=== PATIENT | female | born 1945 | race Caucasian/White ===

== ENCOUNTER 2020-08-25 12:36 | Outpatient (REF) | payer MEDICARE, SELFPAY ==
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
== END 2020-08-25 12:37 | disposition home or self-care (01) ==
LOC: HO.MAMMO 12:36
PROVIDERS: Visit Provider Internal Medicine
DX: N63.22 Unspecified lump in the left breast, upper inner quadrant (principal); D05.11 Intraductal carcinoma in situ of right breast; Z98.890 Other specified postprocedural states
CPT/HCPCS: 76642; 77062; 77066

== ENCOUNTER → 2020-10-20 09:55 | Outpatient (BNVA) | payer BC, SELFPAY | PROVIDERS: PCP Internal Medicine; Visit Provider Surgery ==

== ENCOUNTER 2021-02-21 13:14 | Outpatient (REF) | payer BC, SELFPAY ==
--- NOTE | ~2021-02-21 | MM_ITS ---
EXAMINATION: MM DIAGNOSTIC DIGITAL BREAST TOMOSYNTHESIS, LEFT US BREAST TARGETED, LEFT CLINICAL INFORMATION: Six-month followup breast nodules. Previous right breast lumpectomy. COMPARISON: Mammography: Mammography of same day and studies dating back to 06/26/2017. Ultrasound study of 08/25/2020. TECHNIQUE: Digital breast tomosynthesis is performed in both the craniocaudal and mediolateral oblique views along with computer-aided detection (CAD). Synthesized 2-D images are generated from the tomosynthesis. Spot compression views in craniocaudal projection performed laterally. Targeted left breast ultrasound. FINDINGS: There are scattered areas of fibroglandular density (ACR BI-RADS breast composition Category b). There is stable appearance of some asymmetric parenchyma deep in the upper outer aspect of the left breast. There is multiplicity of grouped and scattered benign-appearing calcifications. Targeted left breast ultrasound performed in the upper inner quadrant 11 o'clock position approximately 11 cm from nipple, again demonstrates a region of a few hypoechoic lesions with surrounding hyperechoic regions consistent with some degree of fat necrosis. There is what appears to be an acorn cyst amongst the densities. No internal vascularity is present within these lesions. Results are discussed with the patient at time of visit. MM/MM tomosynthesis diagnostic LT IMPRESSION: There are no significant changes from prior study. ASSESSMENT: BI-RADS 3: Probably Benign. RECOMMENDATION: Diagnostic mammography in 6 months left breast with screening right breast study. Diagnostic left breast ultrasound. This patient's information was entered into a reminder system with a target due date for their next mammogram.
--- NOTE | ~2021-02-21 | US_ITS ---
EXAMINATION: US DIAGNOSTIC ULTRASOUND BREAST, LEFT CLINICAL INFORMATION: Follow up multiple cystic regions left breast, 11:00 position COMPARISON: August 25, 2020. TECHNIQUE: Ultrasound of the breast is performed with real-time figueroa scale imaging and color Doppler. FINDINGS: Targeted left breast ultrasound performed in the upper inner quadrant 11:00 position approximately 11 cm from nipple again demonstrates a region of a few hypoechoic lesions with surrounding hyperechoic regions consistent with some degree of fat necrosis. There is what appears to be an acorn cyst amongst the densities. No internal vascularity is present within these lesions. Results are discussed with the patient at time of visit. US/US breast LT limited IMPRESSION: There are no significant changes from prior study. ASSESSMENT: BI-RADS 3: Probably Benign RECOMMENDATION: Diagnostic mammography in 6 months Left breast with screening right breast study. Diagnostic left breast ultrasound.
== END 2021-02-21 13:15 | disposition home or self-care (01) ==
LOC: HO.MAMMO 13:14
PROVIDERS: Visit Provider Internal Medicine
DX: N63.22 Unspecified lump in the left breast, upper inner quadrant (principal)
CPT/HCPCS: 76642; 77061; 77065

== ENCOUNTER → 2021-07-05 13:55 | Outpatient (BNVA) | payer BC, SELFPAY | PROVIDERS: PCP Internal Medicine; Referring Provider Internal Medicine; Visit Provider Surgery ==

== ENCOUNTER 2021-09-14 14:27 | Outpatient (REF) | payer MEDICARE, SELFPAY ==
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
== END 2021-09-14 14:28 | disposition home or self-care (01) ==
LOC: HO.MAMMO 14:27
PROVIDERS: Visit Provider Internal Medicine
DX: R92.2 Inconclusive mammogram (principal)
CPT/HCPCS: 76642; 77062; 77066

== ENCOUNTER → 2021-10-30 13:46 | Outpatient (BNVA) | payer MEDICARE, SELFPAY | PROVIDERS: PCP Internal Medicine; Visit Provider Surgery | DX: Z86.000 Personal history of in-situ neoplasm of breast (principal) | CPT/HCPCS: 99212 ==

== ENCOUNTER 2022-02-23 13:21 | Outpatient (REF) | payer MEDICARE, SELFPAY ==
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
== END 2022-02-23 13:22 | disposition home or self-care (01) ==
LOC: HO.MAMMO 13:21
PROVIDERS: PCP Internal Medicine; Visit Provider Internal Medicine
DX: R92.1 Mammographic calcification found on diagnostic imaging of breast (principal)
CPT/HCPCS: 77061; 77065

== ENCOUNTER → 2022-03-19 13:08 | Outpatient (BNVA) | payer MEDICARE, SELFPAY | PROVIDERS: PCP Internal Medicine; Visit Provider Surgery | DX: R92.1 Mammographic calcification found on diagnostic imaging of breast (principal); Z86.000 Personal history of in-situ neoplasm of breast | CPT/HCPCS: 99212 ==

== ENCOUNTER 2022-08-30 12:37 | Outpatient (REF) | payer MEDICARE, SELFPAY ==
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
== END 2022-08-30 12:38 | disposition home or self-care (01) ==
LOC: HO.MAMMO 12:37
PROVIDERS: PCP Internal Medicine; Visit Provider Internal Medicine
DX: R92.1 Mammographic calcification found on diagnostic imaging of breast (principal)
CPT/HCPCS: 77062; 77066

== ENCOUNTER → 2022-09-10 11:28 | Outpatient (BNVA) | payer MEDICARE, SELFPAY | PROVIDERS: PCP Internal Medicine; Visit Provider Surgery | DX: R92.1 Mammographic calcification found on diagnostic imaging of breast (principal) | CPT/HCPCS: 99212 ==

== ENCOUNTER 2023-04-05 14:12 | Outpatient (REF) | payer MEDICARE, SELFPAY ==
--- NOTE | ~2023-04-05 | MM_ITS ---
EXAMINATION: MM DIAGNOSTIC DIGITAL BREAST TOMOSYNTHESIS, LEFT CLINICAL INFORMATION: 6 month follow-up left breast calcifications 3:00 axis. COMPARISON: Mammography: 02/23/2022, 2-22, 02/21/2021, 08/25/2020. TECHNIQUE: Digital left breast tomosynthesis is performed in both the craniocaudal and mediolateral oblique views along with computer-aided detection (CAD). Synthesized 2D images are generated from the tomosynthesis. In addition, 2-D digital spot compression CC and ML views were performed of the left breast. FINDINGS: There are scattered areas of fibroglandular density (ACR BI-RADS breast composition Category b). Scattered loosely grouped calcifications in the 3:00 axis of the left breast, mid depth are again seen, slightly increased in number, and increased in size and coarseness. These overlie a background parenchymal vague focal asymmetry most consistent with a region of fat necrosis. These calcifications are dystrophic, related to fat necrosis from prior breast trauma. No suspicious changes are evident. No masses, or areas of parenchymal distortion. No skin changes evident. There are additional dystrophic scattered calcifications. Results are provided to the patient at time of visit by the technologist. MM/MM tomosynthesis diagnostic LT IMPRESSION: Calcifications with underlying parenchymal focal asymmetry as detailed, findings consistent with fat necrosis with associated dystrophic calcification. Findings are benign. There are no findings suspicious for malignancy. Recommend the patient resume routine annual screening mammography. ASSESSMENT: BI-RADS BI-RADS 2 - Benign Findings RECOMMENDATION: 1 year F/U This patient's information was entered into a reminder system with a target due date for their next mammogram.
== END 2023-04-05 14:13 | disposition home or self-care (01) ==
LOC: HO.MAMMO 14:12
PROVIDERS: PCP Internal Medicine; Visit Provider Internal Medicine
DX: R92.1 Mammographic calcification found on diagnostic imaging of breast (principal)
CPT/HCPCS: 77061; 77065

== ENCOUNTER → 2023-04-05 14:30 | Outpatient (BNV) | payer MEDICARE, SELFPAY | PROVIDERS: PCP Internal Medicine; Visit Provider Radiology Diagnostic Radiology | DX: R92.1 Mammographic calcification found on diagnostic imaging of breast (principal) | CPT/HCPCS: 77061; 77065 ==

== ENCOUNTER 2023-09-26 11:43 | Outpatient (REF) | payer MEDICARE, SELFPAY ==
--- NOTE | ~2023-09-26 | XR_ITS ---
EXAMINATION: XR SHOULDER, bilateral CLINICAL INFORMATION: Pain. COMPARISON: None available. TECHNIQUE: 3 views of each shoulder. FINDINGS: No acute fracture or subluxation. Decreased acromiohumeral interval in both shoulders. Moderate degenerative osteoarthritis in the acromioclavicular and glenohumeral joints bilaterally. No unusual soft tissue calcifications. Visualized ribs and lung are within normal limits. XR/XR shoulder LT min 2V IMPRESSION: 1. No acute fracture or malalignment. 2. 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 3. Decreased acromiohumeral interval suggesting rotator cuff disease.
--- NOTE | ~2023-09-26 | XR_ITS ---
EXAMINATION: XR SHOULDER, bilateral CLINICAL INFORMATION: Pain. COMPARISON: None available. TECHNIQUE: 3 views of each shoulder. FINDINGS: No acute fracture or subluxation. Decreased acromiohumeral interval in both shoulders. Moderate degenerative osteoarthritis in the acromioclavicular and glenohumeral joints bilaterally. No unusual soft tissue calcifications. Visualized ribs and lung are within normal limits. XR/XR shoulder RT min 2V IMPRESSION: 1. No acute fracture or malalignment. 2. 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 3. Decreased acromiohumeral interval suggesting rotator cuff disease.
== END 2023-09-26 11:44 | disposition home or self-care (01) ==
LOC: HO.HOSX 11:43
PROVIDERS: Visit Provider Orthopaedic Surgery
DX: M25.511 Pain in right shoulder (principal); M25.512 Pain in left shoulder; M75.101 Unspecified rotator cuff tear or rupture of right shoulder, not specified as traumatic; M75.102 Unspecified rotator cuff tear or rupture of left shoulder, not specified as traumatic; M12.811 Other specific arthropathies, not elsewhere classified, right shoulder; M12.812 Other specific arthropathies, not elsewhere classified, left shoulder
CPT/HCPCS: 20610; 73030; 99202; J0665; J1100

== ENCOUNTER 2023-09-26 12:51 | Outpatient (AMB) | payer MEDICARE, SELFPAY ==
--- NOTE | 2023-09-26 12:54 | MHC.OFFVIS ---
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 Right Shoulder is more painful than the left. Patient reports that she has a 12 hour surgery and after the surgery she had very limited ROM. Denies any numbness and tingling. She has increased pain with reaching and lifting. 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 She says her pain is worse in her right shoulder, and she has very limited ROM. Her pain began, she says, after a 12-hour procedure she had done. SHe had some discomfort prior but nothing like the pain she currently has. [facility] Medical History Breast calcifications History of ductal carcinoma in situ (DCIS) of breast Hyperlipidemia Hypertension Surgical History History of angioplasty (06/29/16) History of discectomy (1984) History of hysterectomy (1974) History of lumpectomy of both breasts History of lumpectomy of right breast (06/2017) Hx of release of tendon (1995) Family History Father No problems noted. Mother History of lung cancer Social History Alcohol intake: current Alcohol intake frequency: holidays/special occasions only Patient Tobacco Use Status: Never used Tobacco Review of Systems Const All systems reviewed & are unremarkable except as noted in HPI and below Physical Exam Const General: no acute distress, alert and awake Orientation/consciousness: patient oriented x3 HEENT Head: Yes normocephalic and Yes atraumatic Eyes EOM: EOMs intact bilaterally Resp Effort & Inspection: normal respiratory effort and able to speak in complete sentences Cardio Jugular venous distension: no JVD Skin General skin exam: turgor normal Rashes: no rashes Neuro General: patient oriented x3 Extrem Other: 4/5 EC on right 4-/5 EC on left passive ROM full active : 30/70/120 ( with scapular recuritment) L5 Psych Appearance: grossly normal Affect: normal affect Attitude: cooperative Office Procedures Joint Injection/Drain Joint Injection/Drain Details: Injected 1 mL of Decadron and 3 mL 1% lidocaine and 3 mL of 0.25% Marcaine. Site was prepped using aseptic technique. Patient tolerated the procedure well. Primary Site: right shoulder Secondary Site: left shoulder Approach Used: posterolateral Coding - Large joint 20512 - Glenohumeral/Tronchanteric Bursa/Intraarticular Procedure code (CPT) selection complete Results Reviewed Results Reviewed: I personally reviewed relevant radiographs. Proximal migration of humeral head bilaterally Assessment & Plan Assessment & Plan (1) Rotator cuff tear arthropathy of both shoulders: Code(s): M75.101 - Unspecified rotator cuff tear or rupture of right shoulder, not specified as traumatic; M12.811 - Other specific arthropathies, not elsewhere classified, right shoulder; M12.812 - Other specific arthropathies, not elsewhere classified, left shoulder; M75.102 - Unspecified rotator cuff tear or rupture of left shoulder, not specified as traumatic Plan: RTC arthropathy bilaterally. Likely exacerbated by recent procedure. i injected both shoulders and recommend PT. May follow up in 3 months or PRN. Plan Prepared for Alpesh Chang MD by Neri Antoine, ophthalmic medical technician, on 09/26/23 at 1:05 PM, EST. Orders: Orders XR shoulder RT min 2V 09/26/23 M25.519 - Pain in unspecified shoulder XR shoulder LT min 2V 09/26/23 M25.519 - Pain in unspecified shoulder Coding Level of Care Code New Pt Level 4 (53709) Diagnoses Rotator cuff tear arthropathy of both shoulders M75.101; M12.811; M12.812; M75.102 CPT Codes Coding - Large joint: 70917 - Large joint ([id number]) Coding - Joint 7: 17210 - Glenohumeral/Tronchanteric Bursa/Intraarticular ([id number])
== END 2023-09-26 13:45 | disposition home or self-care (01) ==
PROVIDERS: PCP Internal Medicine; Visit Provider Orthopaedic Surgery
DX: M75.101 Unspecified rotator cuff tear or rupture of right shoulder, not specified as traumatic (principal); M12.811 Other specific arthropathies, not elsewhere classified, right shoulder; M12.812 Other specific arthropathies, not elsewhere classified, left shoulder; M75.102 Unspecified rotator cuff tear or rupture of left shoulder, not specified as traumatic
CPT/HCPCS: 20610; 99204

== ENCOUNTER 2023-10-15 11:17 | Outpatient (REF) | payer MEDICARE, SELFPAY ==
--- NOTE | ~2023-10-15 | MM_ITS ---
EXAMINATION: MM SCREENING DIGITAL BREAST TOMOSYNTHESIS, BILATERAL CLINICAL INFORMATION: Screening. Asymptomatic. The patient is status post right breast cancer surgery from late 2017. COMPARISON: Mammography: This study is compared with prior exams dating back to 2019. TECHNIQUE: Digital breast tomosynthesis is performed in both the craniocaudal and mediolateral oblique views along with computer-aided detection (CAD). Synthesized 2D images are generated from the tomosynthesis. FINDINGS: There are scattered areas of fibroglandular density (ACR BI-RADS breast composition Category b). There are no significant masses, abnormal calcifications, or other abnormalities. There are bilateral benign calcifications. There is a tissue marker present in the right breast. There are postsurgical changes and fat necrosis in the lateral aspect of the right breast. There is mild skin thickening of the inferomedial aspect of the right breast. All of these findings are related to prior breast cancer treatment treatment. MM/MM tomosynthesis screening BI IMPRESSION: No mammographic evidence of malignancy. ASSESSMENT: BI-RADS BI-RADS 2 - Benign Findings RECOMMENDATION: Routine annual mammography screening. 1 year F/U This examination should not preclude the clinical evaluation of a suspicious palpable abnormality. This patient's information was entered into a reminder system with a target due date for their next mammogram.
== END 2023-10-15 11:18 | disposition home or self-care (01) ==
LOC: HO.MAMMO 11:17
PROVIDERS: PCP Internal Medicine; Visit Provider Internal Medicine
DX: Z12.31 Encounter for screening mammogram for malignant neoplasm of breast (principal)
CPT/HCPCS: 77063; 77067

== ENCOUNTER → 2023-10-15 11:30 | Outpatient (BNV) | payer MEDICARE, SELFPAY | PROVIDERS: PCP Internal Medicine; Visit Provider Radiology Diagnostic Radiology | DX: Z12.31 Encounter for screening mammogram for malignant neoplasm of breast (principal) | CPT/HCPCS: 77063; 77067 ==

== ENCOUNTER 2024-02-10 11:26 | Outpatient (AMB) | payer MEDICARE, SELFPAY ==
--- NOTE | 2024-02-10 11:28 | MHC.OFFVIS ---
Vital Signs 02/10/24 11:31 Height 5 ft 2 in Weight 133 lb BMI 24.3 Handedness Right Intake Visit Reasons: inj-Bilateral shoulder pain-Injection 09/26/23 Intake Note: Kristen is a 78 year old right hand dominant female who presents today for bilateral shoulder injections. Last injections 09/26/23. Patient reports she is well and is having some discomfort again. She expresses she has aching pain and it noticing some new pain radiating to her tricep area. Her last injections provided her with relief and lasted for about two whole months, she would like to repeat today. Allergies No Known Allergies [No Known Allergies*] Allergy (Verified 02/10/24 11:33) HPI HPI inj-Bilateral shoulder pain-Injection 09/26/23: Details: Kristen is a 78 year old right hand dominant female who presents today for bilateral shoulder injections. Last injections 09/26/23. Patient reports she is well and is having some discomfort again. She expresses she has aching pain and it noticing some new pain radiating to her tricep area. Her last injections provided her with relief and lasted for about two whole months, she would like to repeat today. [facility] Medical History Breast calcifications Hyperlipidemia Hypertension History of ductal carcinoma in situ (DCIS) of breast Surgical History History of angioplasty (06/29/16) History of lumpectomy of right breast (06/2017) History of lumpectomy of both breasts Hx of release of tendon (1995) History of discectomy (1984) History of hysterectomy (1974) Family History Father No problems noted. Mother History of lung cancer Social History Alcohol intake: current Alcohol intake frequency: holidays/special occasions only Patient Tobacco Use Status: Never used Tobacco Current occupational status: retired Physical Exam Vital Signs: BMI result Body Mass Index 24.3 Const General: no acute distress, alert and awake Orientation/consciousness: patient oriented x3 HEENT Head: Yes normocephalic and Yes atraumatic Eyes EOM: EOMs intact bilaterally Resp Effort & Inspection: normal respiratory effort and able to speak in complete sentences Cardio Jugular venous distension: no JVD Skin General skin exam: turgor normal Rashes: no rashes Neuro General: patient oriented x3 Extrem Other: 4/5 EC on right 4-/5 EC on left passive ROM full active : 30/70/120 ( with scapular recuritment) L5 Psych Appearance: grossly normal Affect: normal affect Attitude: cooperative Office Procedures Joint Injection/Drain Joint Injection/Drain Details: Injected 1 mL of Decadron and 3 mL 1% lidocaine and 3 mL of 0.25% Marcaine. Site was prepped using aseptic technique. Patient tolerated the procedure well. Primary Site: right shoulder Secondary Site: left shoulder Approach Used: posterolateral Coding - Large joint 46000 - Glenohumeral/Tronchanteric Bursa/Intraarticular Procedure code (CPT) selection complete Assessment & Plan Assessment & Plan (1) Rotator cuff tear arthropathy of both shoulders: Code(s): M75.101 - Unspecified rotator cuff tear or rupture of right shoulder, not specified as traumatic; M12.811 - Other specific arthropathies, not elsewhere classified, right shoulder; M12.812 - Other specific arthropathies, not elsewhere classified, left shoulder; M75.102 - Unspecified rotator cuff tear or rupture of left shoulder, not specified as traumatic Category: Medical Plan: RTC arthropathy bilaterally. Iinjected both shoulders and recommend PT. May follow up in 3 months or PRN. Coding Level of Care Code Est Pt Level 3 (50594) Diagnoses Rotator cuff tear arthropathy of both shoulders M75.101; M12.811; M12.812; M75.102 CPT Codes Coding - 13383 Large joint: 77709 - Large joint ([id number]) Coding - Joint 7: 86078 - Glenohumeral/Tronchanteric Bursa/Intraarticular ([id number])
[2024-02-10 11:31] VITALS: BMI 24.3
== END 2024-02-10 11:51 | disposition home or self-care (01) ==
PROVIDERS: PCP Internal Medicine; Visit Provider Orthopaedic Surgery
DX: M75.101 Unspecified rotator cuff tear or rupture of right shoulder, not specified as traumatic (principal); M12.811 Other specific arthropathies, not elsewhere classified, right shoulder; M12.812 Other specific arthropathies, not elsewhere classified, left shoulder; M75.102 Unspecified rotator cuff tear or rupture of left shoulder, not specified as traumatic
CPT/HCPCS: 20610; 99213

== ENCOUNTER → 2024-02-10 11:26 | Outpatient (BNVA) | payer MEDICARE, SELFPAY | PROVIDERS: PCP Internal Medicine; Visit Provider Orthopaedic Surgery | DX: M75.101 Unspecified rotator cuff tear or rupture of right shoulder, not specified as traumatic (principal); M12.811 Other specific arthropathies, not elsewhere classified, right shoulder; M12.812 Other specific arthropathies, not elsewhere classified, left shoulder; M75.102 Unspecified rotator cuff tear or rupture of left shoulder, not specified as traumatic | CPT/HCPCS: 20610; 99212; J0665; J1100 ==

== ENCOUNTER 2024-09-17 10:37 | Outpatient (AMB) | payer MEDICARE, SELFPAY ==
--- NOTE | 2024-09-17 10:44 | MHC.OFFVIS ---
Vital Signs 09/17/24 10:49 Height 5 ft 2 in Weight 133 lb BMI 24.3 Intake Visit Reasons: inj-Bilat shoulder pain- last inj 02/10/2024 Intake Note: Kristen is a 79 year old female who presents today for a follow up of bilateral shoulder, last injections 02/10/24. Patient reports last injection provided her with about 2 months of relief. She would like to repeat injection. Allergies No Known Allergies [No Known Allergies*] Allergy (Verified 09/17/24 10:45) Medication List - Last Reconciled 09/17/24 by Johann Vogel PA-C acetaminophen (Tylenol) 325 mg PO QID PRN amiodarone 200 mg PO DAILY amlodipine 5 mg PO DAILY biotin 1 mg PO DAILY clopidogrel (Plavix) 75 mg PO DAILY famotidine 20 mg PO DAILY ferrous sulfate 300 mg PO DAILY multivitamin (Multiple Vitamins tablet) 1 tab PO DAILY rosuvastatin 20 mg PO DAILY tramadol 50 mg PO Q4H HPI HPI inj-Bilat shoulder pain- last inj 02/10/2024: Details: 79-year-old female returns to the office today for a follow-up bilateral shoulder pain status post injections. She states that she has had some things going on at home which has caused her to miss her May injections. She has had some discomfort in both shoulders affecting her daily activities. [facility] Medical History Breast calcifications Hyperlipidemia Hypertension History of ductal carcinoma in situ (DCIS) of breast Surgical History History of angioplasty (06/29/16) History of lumpectomy of right breast (06/2017) History of lumpectomy of both breasts Hx of release of tendon (1995) History of discectomy (1984) History of hysterectomy (1974) Family History Father No problems noted. Mother History of lung cancer Social History Alcohol intake: current Alcohol intake frequency: holidays/special occasions only Patient Tobacco Use Status: Never used Tobacco Current occupational status: retired Review of Systems Const All systems reviewed & are unremarkable except as noted in HPI and below Physical Exam Vital Signs: BMI result Body Mass Index 24.3 Const General: no acute distress, alert and awake Orientation/consciousness: patient oriented x3 HEENT Head: Yes normocephalic and Yes atraumatic Eyes EOM: EOMs intact bilaterally Resp Effort & Inspection: normal respiratory effort and able to speak in complete sentences Cardio Jugular venous distension: no JVD Skin General skin exam: turgor normal Rashes: no rashes Neuro General: patient oriented x3 Extrem Other: 4/5 EC on right 4-/5 EC on left passive ROM full active : 30/70/120 ( with scapular recuritment) L5 Psych Appearance: grossly normal Affect: normal affect Attitude: cooperative Office Procedures AMB Joint Injection/Aspiration Joint Injection/Aspiration Primary Site: right shoulder Secondary Site: left shoulder Prep: site was prepped using aseptic technique, ethochloride spray was applied and injection warnings given Injected: 40 mg of, with 3 mL of, 1% plain lidocaine, 0.25% bupivacaine, in the subcromial space and decadron Approach Used: posterolateral Procedure: The patient tolerated the procedure well and there was some relief with the local anesthesia Coding 61511 - Glenohumeral/Tronchanteric Bursa/Intraarticular Procedure code (CPT) selection complete Assessment & Plan Assessment & Plan (1) Rotator cuff tear arthropathy of both shoulders: Code(s): M75.101 - Unspecified rotator cuff tear or rupture of right shoulder, not specified as traumatic; M12.811 - Other specific arthropathies, not elsewhere classified, right shoulder; M12.812 - Other specific arthropathies, not elsewhere classified, left shoulder; M75.102 - Unspecified rotator cuff tear or rupture of left shoulder, not specified as traumatic Category: Medical Plan: We discussed options today, which include steroid injection. The patient did consent to move forward with the injection, which was tolerated well.? I recommended rest, ice and elevation and OTC antiinflammatories prn for discomfort. If symptoms persist over the next 6-8 weeks, they will contact our office, otherwise, prn Coding Level of Care Code Est Pt Level 3 (73400) Complex EM visit Add On G2211 Diagnoses Rotator cuff tear arthropathy of both shoulders M75.101; M12.811; M12.812; M75.102 CPT Codes Coding - Joint 7: 36260 - Glenohumeral/Tronchanteric Bursa/Intraarticular ([id number])
[2024-09-17 10:49] VITALS: BMI 24.3
--- OUTSIDE RECORDS SUMMARY | 2024-09-17 12:37 | XMS_ITS | Continuity of Care Document ---
Author Organization [facility] ter Address [address] [place] [id number]- Care Team Providers Care Recruiter Name Role Phone Ha MOORE, Ciro Capellan Primary Care Physician [phone] Encounter [facility] Date(s): 09/07/24 - 09/07/[address] [address] Discharge Disposition: A-D/C Home Attending Physician: Alvarado Alcantar MD Admitting Physician: Alvarado Alcantar MD Referring Physician: Alvarado Alcantar MD Encounter Type: Disch Daystay Allergies, Adverse Reactions, Alerts No Known Allergies Immunizations Given and Recorded Vaccine Date Status Refusal Reason RSV vaccine, preF A-preF B, recombinant 08/24/23 R ecorded tetanus/diphtheria/pertussis, acel(Tdap) 08/03/23 Given influenza virus vaccine, inactivated 08/01/23 Mateus rded influenza virus vaccine, inactivated 05/18/22 Mateus rded influenza virus vaccine, inactivated 06/20/21 Mateus rded influenza virus vaccine, inactivated 06/22/17 Mateus rded influenza virus vaccine, inactivated 06/11/16 Mateus rded influenza virus vaccine, inactivated 06/22/15 Mateus rded influenza virus vaccine, inactivated 06/04/13 Mateus rded influenza virus vaccine, inactivated 08/01/12 Mateus rded influenza virus vaccine, inactivated 07/05/11 Mateus rded influenza virus vaccine, inactivated 06/23/10 Mateus rded SARS-CoV-2(COVID-19)mRNA-LNP vac([id number]) 05/16/23 Recorded [id number] bivalent booster vax 05/04/22 Recorded SARS-CoV-2 (COVID-19) mRNA-1273 vaccine 07/28/21 R ecorded SARS-CoV-2 (COVID-19) mRNA-1273 vaccine 11/22/20 R ecorded SARS-CoV-2 (COVID-19) mRNA-1273 vaccine 10/24/20 R ecorded pneumococcal 13-valent vaccine 06/07/16 Recorded Medications amiodarone 200 mg oral tablet 200 mg, By Mouth, Daily, # 30 tablet, Refills 0, Tot. Refills 0, Maintenance, 07/18/23 12:06:00 PM EST, Route to Pharmacy Electronically, [facility] #[id number], Partial fill upon patient requestif the prescription is for a schedule II opioid drug., 157.4, cm, 07/18/23 7:52:00 EST, Height, 65.5, kg, 07/10/23 17:54:00 EST, Dry Weight Start Date: 07/18/23 Status: Ordered Quantity: 30.0 Unit: tablet Repeat number: 1 amLODIPine 5 mg oral tablet 5 mg, By Mouth, Daily, Refills 0, Maintenance, 08/08/23 9:56:00 AM EST, Partial fill upon patient request if the prescription is for a schedule II opioid drug. Start Date: 08/08/23 Status: Ordered Repeat number: 1 aspirin 81 mg oral capsule 1 capsule = 81 mg, By Mouth, Every 24 hours, 0 Refills, Maintenance, 02/05/24 8:09:00 AM EDT, Partial fill upon patient request if the prescription is for a schedule II opioid drug. Start Date: 02/05/24 Status: Ordered Repeat number: 1 Biotin 10 mg oral tablet 1 tablet = 10 mg, By Mouth, Daily, # 30 tablet, 0 Refills, Maintenance, 07/18/23 12:06:00 PM EST, Tablet, [facility] #[id number], Partial fill upon patient request if the prescription is for a schedule II opioid drug., 157.4, cm, 07/18/23 7:52:00 EST, Height, 65.5, kg, 07/10/23 17:54:00 EST, Dry Weight Start Date: 07/18/23 Status: Ordered Quantity: 30.0 Unit: tablet Repeat number: 1 clopidogrel 75 mg oral tablet 75 mg, By Mouth, Daily, Refills 0, Maintenance, 10/28/23 10:19:00 AM EST, Partial fill upon patient request if the prescription is for a schedule II opioid drug. Start Date: 10/28/23 Status: Ordered Repeat number: 1 famotidine 20 mg oral tablet 20 mg, 1, tablet, By Mouth, Daily, # 30 tablet, Refills 0, Tot. Refills 0, Maintenance, 07/18/23 12:07:00 PM EST, Route to Pharmacy Electronically, [facility] #[id number], Partial fill upon patient request if the prescription is for a schedule II opioid drug., 157.4, cm, 07/18/23 7:52:00 EST, Height, 65.5, kg, 07/10/23 17:54:00 EST, Dry Weight Start Date: 07/18/23 Status: Ordered Quantity: 30.0 Unit: tablet Repeat number: 1 ferrous sulfate 325 mg oral enteric coated tablet 325 mg, By Mouth, Daily, # 30 tablet, Refills 0, Tot. Refills 0, Maintenance, 07/18/23 12:07:00 PM EST, Route to Pharmacy Electronically, [facility] #[id number], Partial fill upon patient requestif the prescription is for a schedule II opioid drug., 157.4, cm, 07/18/23 7:52:00 EST, Height, 65.5, kg, 07/10/23 17:54:00 EST, Dry Weight Start Date: 07/18/23 Status: Ordered Quantity: 30.0 Unit: tablet Repeat number: 1 Multivitamin 1 tablet, By Mouth, Daily in AM, 0 Refills, Maintenance, 06/29/16 6:33:22 AM EDT Start Date: 06/29/16 Status: Ordered Repeat number: 1 PEG-3350 with Electrolytes (Eqv-GoLYTELY) oral powder for reconstitution See Instructions, ok to substitute for any gallon prep, # 1 each, 0 Refills, Maintenance, 08/11/24 11:20:00 AM EST, [facility] #[id number], Partial fill upon patient request if the prescription is for a schedule II opioid drug., ok to substitute for any gallon prep, 158, cm, 04/28/24 10:06:00 EDT, Height, 60.5, kg, 02/05/24 8:10:00 EDT, Dry Weight Start Date: 08/11/24 Status: Ordered Quantity: 1.0 Unit: each Repeat number: 1 PEG-3350 with Electrolytes (Eqv-GoLYTELY) oral powder for reconstitution See Instructions, Per GI Office, # 4,000 mL, 0 Refills, Maintenance, 01/09/24 3:38:00 PM EDT, [facility] #[id number], Partial fill upon patient request if the prescription is for a schedule II opioid drug., Per GI Office, 157, cm, 11/07/23 14:43:00 EDT, Height, 55.6, kg, 10/25/23 1:42:00 EST, Dry Weight Start Date: 01/09/24 Status: Ordered Quantity: 4000.0 Unit: mL Repeat number: 1 Protonix 40 mg oral delayed release tablet 1 tablet = 40 mg, By Mouth, Daily, # 14 tablet, 0 Refills, Maintenance, 10/28/23 12:26:00 PM EST, EC Tablet, 157, cm, 10/28/23 10:52:00 EST, Height, 55.6, kg, 10/25/23 1:42:00 EST, Dry Weight Start Date: 10/28/23 Stop Date: 11/11/23 Status: Ordered Quantity: 14.0 Unit: tablet Repeat number: 1 rosuvastatin 20 mg oral tablet 1 tablet = 20 mg, By Mouth, Daily, # 90 tablet, 4 Refills, Maintenance, 08/06/23 11:10:00 AM EST, Tablet, [facility] #[id number], Partial fill upon patient request if the prescription is for a schedule II opioid drug., 160, cm, 08/06/23 10:35:00 EST, Height, 52.5, kg, 08/03/23 13:57:00 EST, DryWeight Start Date: 08/06/23 Status: Ordered Quantity: 90.0 Unit: tablet Repeat number: 5 Tylenol 8 Hour 650 mg oral tablet, extended release 2 tablet = 1,300 mg, By Mouth, Every 8 hours, extra strength, 0 Refills, Maintenance, 04/28/24 10:05:00 AM EDT, Partial fill upon patient request if the prescription is for a schedule II opioid drug. Start Date: 04/28/24 Status: Ordered Repeat number: 1 Problem List Condition Confirmation Course Effective Dates Status Health Status Informant Debility Confirmed Active Hypertension Confirmed Active Chronic mesenteric ischemia Confirmed Active COVID-19 Confirmed Active COVID-19 1 Confirmed 07/17/23 Active Former smoker Confirmed Active Hyperlipidemia Confirmed Active Spondylolisthesis of lumbar region Confirmed Active Breast cancer Confirmed Active 1Problem added by Discern Expert Vital Signs Most recent to oldest [Reference Range]: 1 2 3 Height 157.5 cm (09/07/24 12:40 PM) Weight 66.2 kg (09/07/24 12:40 PM) Oxygen Saturation [94-100 %] 97 % (09/07/24 2:51 PM) 97 % (09/07/24 2:46 PM) 100 % (09/07/24 2:36 PM) Pulse Rate [55-90 bpm] 83 bpm (09/07/24 12:40 PM) Body Mass Index [18.5-24.99 kg/m2] 26.69 kg/m2 *H* (09/07/24 12:40 PM) Blood Pressure [90-138/55-84 mm Hg] 144/59mm Hg *H* (09/07/24 2:51 PM) 139/53mm Hg *H* (09/07/24 2:46 PM) 125/110mm Hg (09/07/24 2:36 PM) Respiratory Rate [16-30 br/min] 16 br/min (09/07/24 2:51 PM) 16 br/min (09/07/24 2:46 PM) 16 br/min (09/07/24 2:36 PM) Temperature [96.8-100.4 DegF] 97.8 DegF (09/07/24 2:36 PM) 98.1 DegF (09/07/24 12:40 PM) Liters per Minute 6 L/min (09/07/24 2:36 PM) Mode of Delivery (Oxygen) Room air (09/07/24 2:51 PM) Room air (09/07/24 2:46 PM) Simple face mask (09/07/24 2:36 PM) Blood pressure sites Arm, left (09/07/24 2:51 PM) Arm, left (09/07/24 2:46 PM) Arm, left (09/07/24 2:36 PM) Temperature Route Temporal (09/07/24 2:36 PM) Temporal (09/07/24 12:40 PM) Dry Weight 66.2 kg (09/07/24 12:40 PM) Weight Obtained Via Patient/family state d (09/07/24 12:40 PM) Dry Weight Obtained Via Patient/family s tated (09/07/24 12:40 PM) Social History Social History Type Response Tobacco Other: Quit smoking in 2000. Sex Sex Representation Female (finding) Note * Rosa Isela De Souza RN: PERFORM Event Display: Discharge/Transfer Note Hospital Authored Date: [id number] Nursing Discharge Note Entered On: 09/07/2024 14:44 EST Performed On: 09/07/2024 14:44 EST by Rosa Isela De Souza RN Nursing Discharge Note 2 Discharge Time : 09/07/2024 15:18 EST Rosa Isela De Souza RN - 09/07/2024 15:19 EST Discharge Level of Care at Discharge : Home/Nursing Home/Foster Care Patient Left Unit Via : Wheelchair Patient Accompanied Off Unit with : Responsible adult DC Instructions Provided & Signed by Pt : Yes Patient Understands D/C Instructions : Yes Patient Instructions Discharge Signed : Yes Did Pt have Specialty Bed or Wound Vac : No Rosa Isela De Souza RN - 09/07/2024 14:44 EST * Rosa Isela De Souza RN: PERFORM Event Display: Patient Education/Instruction Authored Date: [id number] Surgery Adult Discharge Instructions [address] [address] Name: FERMÍN RAIN : 1945?? Visit: 09/07/2024 12:06?? Current Date: 09/07/2024 14:44 ?? Account: [id number]?? Surgery Discharge Instructions We would like to thank you for allowing us to assist you with your healthcare needs. The following includes patient education materials and information regarding your injury/illness. Our entire staffstrives to provide an excellent experience for our patients and their families. PLEASE ENSURE YOU FOLLOW-UP PER THE INSTRUCTIONS BELOW! ?? YOUR OPINION IS IMPORTANT TO US! Please complete the survey you may receive by mail or email. Your feedback will be used to make improvements to the healthcare experiences of our patients and their families. Surveys are administered by [employer] ?? If further treatment with your primary care physician or another doctor is recommended, it is important for you to keep the appointment. Call your primary care physician or return to the Emergency Department immediately if your condition worsens, fails to improve, or new symptoms develop. If you need to find a doctor, you can call [facility] streamOnce for a referral at [phone] or toll free at [phone].io ([phone]) or log in to [email or web address].. ?? [facility], in keeping with [facility] guidance, no longer requires face masks for staff, patientsor visitors in most situations. Similiar to time spent indoors at other locations, there is the chance that you were exposed to repiratory viruses during your time with us (such as flu or COVID-19). If you develop symptoms concerning for a viral respiratory infection, please seek testing (and treatment if indicated) from your medical provider or home test kit. ?? You can view and manage your care through the patient portal or by using a health care ruthie of your choosing. [employer] is a website that allows you to securely view your medical information including your hospital discharge summary, office visit summaries, medications and follow-up visits. You can also request appointments, renew medications, and request access to your medical information using a health care ruthie of your choosing, or just ask a question. You are entitled to know the individuals who participated in your treatment. This information is available within your medical record and will be provided upon your request. You can enroll at [email or web address] or register d uring your next office visit. You have been discharged from , Patient Care Unit: ENDO??. If you have any questions regarding these instructions after you leave, please call us and we will be happy to assist you. Your Care Team Attending Physician Alvarado Alcantar MD?? Discharging Providers Alvarado Alcantar MD Reason for Admission LARGE COLON POLYP Primary Care Provider Ha MOORE, Ciro Capellan? Advance Directive Health Care Proxy on File Yes - Health Care Proxy What to do next Instructions From Your Doctor ?? Orders?? Daystay Protocol, ??09/07/24 12:48:00 EST?? Scheduled Follow-Up Appointments Saturday 7:30 AM EST ?? Where: [facility] [address] [address]- Status: Pending 2024 11:00 AM EST ?? With: Bib ACOSTA, Hoda Valdivia Where: [facility] [address] [address]- Status: Pending You Need to Schedule the Following Appointments Follow Up with??follow up with your PCP Follow Up with??Ciro Bonner When:??In 0 days Discharge Medications FERMÍN RAIN :1945 Visit Date:09/07/2024 Medications: Please continue your medications until treatment is completed or stopped by your provider. You may resume your daily prescription medications. Discuss any questions related to medications with your provider. What How Much When Instructions Next Dose Unchanged Acetaminophen (Tylenol 8 Hour 650 mg oral tablet, extended release) 2 tab(s) Oral Every 8 hours extra strength ?? Unchanged amiODARONE (amiodarone 200 mg oral tablet) 200 Milligram Oral Daily Unchanged Amlodipine (amLODIPine 5 mg oral tablet) 5 Milligram Oral Daily Unchanged Aspirin (aspirin 81 mg oral capsule) 1 capsule Oral Every 24 hours Unchanged Biotin (Biotin 10 mg oral tablet) 1 tab(s) Oral Daily Unchanged Clopidogrel (clopidogrel 75 mg oral tablet) 75 Milligram Oral Daily restart today Unchanged Famotidine (famotidine 20 mg oral tablet) 1 tab(s) Oral Daily Unchanged Ferrous Sulfate (ferrous sulfate 325 mg oral enteric coated tablet) 325 Milligram Oral Daily Unchanged Multivitamin 1 tab(s) Oral Daily in the morning Unchanged Pantoprazole (Protonix 40 mg oral delayed release tablet) 1 tab(s) Oral Daily Duration: 14 Days Unchanged PEG Electrolyte Solution (PEG-3350 with Electrolytes (Eqv-GoLYTELY) oral powder for reconstitution) See instructions Per GI Office ?? Unchanged PEG Electrolyte Solution (PEG-3350 with Electrolytes (Eqv-GoLYTELY) oral powder for reconstitution) See instructions ok to substitute for any gallon prep ?? Unchanged Rosuvastatin (rosuvastatin 20 mg oral tablet) 1 tab(s) Oral Daily Allergies (NKA means No Known Allergies) NKA Education Materials Below is the list of Educational Leaflet Providered with your Discharge Instructions. Web[employer] Ignite Patient Education - Surgery Medical Daystay Surgical Overnight Discharge Instructions?? [employer] Patient Education - Diverticulosis Discharge Instructions?? Valuables and Belongings I fully understand and agree that [facility] accepts no responsibility for all my personal property including clothing, toilet articles, radios, jewelry, dentures, hearing aids, rings, money, or any other property that is in my possession or is brought to me after admission. I understand certain valuables may be placed in a hospital safe for a short period of time. I understand that the hospital is not liable for loss or damage due to accident, fire, or other natural occurrence while said property is in the safe. I accept full responsibility for any personal property that I keep with me, and will not hold the hospital responsible in case of loss or disappearance. I acknowledge that i have been encouraged to send valuables and belongings home. ? Other Discharge Information ? Case Management Discharge Plan?? Discharge Plan?? Discharge Level of Care at Discharge: Home/Nursing Home/Foster Care ?? Pulmonary Rehab Status?? Pulmonary Rehab Discharge Status?? Respiratory Rate: 16 br/min ? Common Emergency Awareness Tips IS IT A STROKE? Act FAST and Check for these signs: FACE Does the face look uneven? ARM Does one arm drift down? SPEECH Does their speech sound strange? TIME Call at any sign of stroke ?? Heart Attack Signs Chest discomfort: Most heart attacks involve discomfort in the center of the chest and lasts more than a few minutes, or goes away and comes back. It can feel like uncomfortable pressure, squeezing, fullness or pain. Discomfort in upper body: Symptoms can include pain or discomfort in one or both arms, back, neck, jaw or stomach. Shortness of breath: With or without discomfort. Other signs: Breaking out in a cold sweat, nausea, or lightheaded. Remember, MINUTES DO MATTER. If you experience any of these heart attack warning signs, call to get immediate medical attention! ?? Smoking can increase your chances of developing chronic health problems and can cause harmful effects to other family members in your house. If you smoke, you are strongly encouraged to quit. Please call [facility] CorkCRM Link at [phone] or 4-466-020Brisk.io ([phone]) or log in to [email or web address] for referrals to smoking cessation programs. ?? The National Suicide Prevention Hotline is available 18/03 if you or someone you know needs to find a reason to keep living. By calling 7-385-454-GenSpera (7955) you'll be connected to a skilled, trained counselor at a crisis center in your area. SURGERY DISCHARGE INSTRUCTIONS SIGNATURE PAGE KOFFIFERMÍN Location: Registration Date and Time:09/07/2024 12:06 EST Primary Care Physician: Ha MOORE, Ciro Capellan, Attending Physician: Ortiz MOORE, [facility] Shira, I FERMÍN RAIN, have received the above patient education materials/instructions and have verbalized understanding. If ambulance or transport services are being used I further acknowledge being given a choice of service. ?? If you need to contact me, please call me at this number: . Patient/Functional Architect Name: Patient/Functional Architect Signature: Relationship to Patient: Witness Name/Signature: Date: * Rosa Isela De Souza RN: PERFORM, SIGN, VERIFY Event Display: Patient Education Handout Authored Date: [id number] * Rosa Isela De Souza RN: PERFORM Event Display: Patient Education Leaflets Authored Date: [id number] Surgery Medical Daystay Surgical Overnight Discharge Instructions ?? 295 Medical Daystay/Surgical Overnight Discharge Instructions ? Since your coordination and judgment may be altered by medication and/or anesthesia, a responsible adult must drive you home from the hospital. ? If you have received medication for pain or sedation while under our care, you should not drive, operate machinery, drink alcohol, or sign any legal documents for 24 hours.?? You should have someone with you at home tonight. ? Remain at home the day of discharge.?? You may be up and about unless otherwise instructed by your physician. ? You may resume your daily prescription medication schedule.?? Any depressant medication should be avoided for 24 hours unless otherwise instructed by your surgeon or anesthesiologist. ? Call your physician for a follow-up appointment.? If you experience unusual or severe pain not relied by your pain medication, excessive bleedingor drainage, persistent nausea and vomiting, excessive swelling or redness, foul odor from incisionsite or fever over 100.6F, you need to call your physician. ? A follow-up phone call by a nurse will be made the day after your procedure.?? If you have stayed with us over night, you will not be receiving a follow-up phone call. ? Nausea and vomiting are a common side effect of prescription pain medication.?? We recommend that pills are not taken on an empty stomach.?? While taking any prescription pain medication you should not drive or drink alcohol. ? * Ap SPRINGER, Rosa Isela: PERFORM Event Display: Patient Education Leaflets Authored Date: [id number] Diverticulosis Discharge Instructions ?? 680 Diverticulosis Discharge Instructions ??You must carefully read the Consumer Information Use and Disclaimer below in order to understand and correctly use this information?About this topicDiverticulosis is a problem of the large bowel or colon. The wall of the bowel becomes weak and pushes outward. They form balloon-like pouches called diverticula or tics. When you have hard stool, you strain to have a bowel movement. This raises the pressure in the bowel and causes pouches or bulges to form. Most often, they do not cause a problem. If they become infected, you have diverticulitis. If you have both bleeding and infection, it is diverticular disease.??What care is needed at home? Ask your doctor what you need to do when you go home. Make sure??you ask questions if you do not understand what the doctor says. ??? Eat more whole grains, vegetables, and fruits. ??? Do not wait to have a bowel movement. Go as soon as you have the??urge. ??? Drink 8 to 10 glasses of water each day. Talk to your doctor if you are??drinking less fluids due to a health problem. ??? Be active. Walk,garden, or do something active for 30 minutes or more on most days of the week. ??What follow-up care is needed?Your doctor may ask you to make visits to the office to check on your progress. Be sure to keep these visits.??What drugs may be needed?Most often with diverticulosis you will not need to take any drugs.??Will physical activity be limited?When you are in pain, you may need to rest in bed. To ease the pain, use a heat compress on your belly. This should last only for a few days.??What changes to diet are needed?Talk to your doctor about any changes you need to make to your diet.? You do not need to avoid seeds, nuts, corn, or other similar foods. ??? You will need to eat food rich in fiber and drink more water. o Eat 5 or more servings of fresh fruits and vegetables every day. o Eat 6 or more servings of whole-wheat grain breads and??cereals. ??? Try toget 25 to 30 grams of fiber every day. Read the labels to??learn how much fiber is in foods. ??? Donot drink coffee, tea, or beer, wine, and mixed drinks (alcohol). ??What problems could happen?You may develop diverticulitis, which may cause:? Pockets or pouches in your bowel may be infected or filled with pus. ??? Hole or tear in your bowel ??? Part of your bowel to become narrow ??? You to need surgery ??What can be done to prevent this health problem?The best way to keep from having diverticulosis is to keep your bowel movements soft and normal. To keep more pouches from forming:? Talk with your doctor about adding an xgrk-wdt-vggsogj (OTC) fiber??product to keep your stools soft. ??? Limithow much pain drugs you take. Overuse of some pain drugs can??cause hard stools; talk with your doctor. ??? When do I need to call the doctor? Signs of infection. These include a fever of 100.4??F (38??C) or higher,??chills. ??? Mild pain or cramping in the lower part of the belly ??? A feelingof bloating in the belly ??? Belly pain that gets worse ??? Blood in your stool ??? Upset stomach or throwing up ??? Stools get too loose or too hard ??? Long-term hard stools ??Teach Back: Helping You UnderstandThe Teach Back Method helps you understand the information we are giving you. After you talk with the staff, tell them in your own words what you learned. This helps to make sure the staff has described each thing clearly. It also helps to explain things that mayhave been confusing. Before going home, make sure you are able to do these:? I can tell you abo ut my condition. ??? I can tell you what changes I need to make with my diet or drugs. ??? I can tell you what I will do if I have pain or cramping in my lower belly??or I have more belly pain. ??Where can I learn more???[email or web address] [email or web address]-[email or web address]://www.nhs.uk/conditions/sjrhembysgrw-wuimpag-yir- diverticulitis/LastReviewed Dsqu0795-63-91Tkaexmpz Information Use and Disclaimer:This generalized information is a limited summary of diagnosis, treatment, and/or medication information. It is not meant to be comprehensive and should be used as a tool to help the user understand and/or assess potential diagnostic and treatment options. It does NOT include all information about conditions, treatments, medications, side effects, or risks that may apply to a specific patient. It is not intended to be medical adviceor a substitute for the medical advice, diagnosis, or treatment of a health care provider based on the health care provider's examination and assessment of a patient???s specific and unique circumstances. Patients must speak with a health care provider for complete information about their health, medical questions, and treatment options, including any risks or benefits regarding use of medications. This information does not endorse any treatments or medications as safe, effective, or approved for treating a specific patient. [employer]. and its affiliates disclaim any warranty or liabilityrelating to this information or the use thereof. The use of this information is governed by the Terms of Use, available at??[email or web address] Updat ed 10/18/21? Patient Care team information Care Team Personnel Name: Deborah Boogie RN Position: [facility] RN Member Role: Primary Care Nurse Name: Maribell Akhtar RN Position: S RN Member Role: Primary Care Nurse Name: Neri Malone RN Position: [facility] RN Member Role: Primary Care Nurse Name: Darcie Moore RN Position: S RN Member Role: Primary Care Nurse Name: Pamela Spears RN Position: S RN Member Role: Primary Care Nurse Name: Khadijah Ashton Position: [facility] RN Supv Member Role: Primary Care Nurse Name: Carie Lanier RN Position: [facility] RN Member Role: Primary Care Nurse Name: Selena Owen RN Position: [facility] RN Member Role: Primary Care Nurse Name: Ajith Cesar RN Position: [facility] RN Member Role: Primary Care Nurse Name: Ciro Bonner MD Position: [facility] Physician - Primary Care Member Role: PCP Address: [address] [place] [address], [address] Telecom: Name: Beth Vann RN Position: [facility] RN Member Role: Primary Care Nurse Name: Mahsa Goldberg RN Position: S RN Member Role: Primary Care Nurse Name: Bonnie Millan RN Position: [facility] RN Member Role: Primary Care Nurse Name: Dominique Augustin RN Position: [facility] RN Member Role: Primary Care Nurse Care Team Related Persons Name: KATY MCGHEE Name: JABARI RODRIGUEZ Insurance Providers Guarantor name: FERMÍN RAIN Health Plan Information #: 1 Payer: NA Member Number: [id number] Policy Number: NA Group Number: [id number] Health Plan Information #: 2 Payer: NA Member Number: [id number] Policy Number: NA Group Number: NA
== END 2024-09-17 11:08 | disposition home or self-care (01) ==
PROVIDERS: PCP Internal Medicine; Visit Provider Physician Assistant
DX: M75.101 Unspecified rotator cuff tear or rupture of right shoulder, not specified as traumatic (principal); M12.811 Other specific arthropathies, not elsewhere classified, right shoulder; M12.812 Other specific arthropathies, not elsewhere classified, left shoulder; M75.102 Unspecified rotator cuff tear or rupture of left shoulder, not specified as traumatic
CPT/HCPCS: 20610; 99213

== ENCOUNTER → 2024-09-17 10:37 | Outpatient (BNVA) | payer MEDICARE, SELFPAY | PROVIDERS: PCP Internal Medicine; Visit Provider Physician Assistant | DX: M75.101 Unspecified rotator cuff tear or rupture of right shoulder, not specified as traumatic (principal); M75.102 Unspecified rotator cuff tear or rupture of left shoulder, not specified as traumatic; M12.811 Other specific arthropathies, not elsewhere classified, right shoulder; M12.812 Other specific arthropathies, not elsewhere classified, left shoulder | CPT/HCPCS: 20610; 99212; J0665; J1100; J2003 ==

== ENCOUNTER 2024-10-19 10:54 | Outpatient (REF) | payer MEDICARE, SELFPAY ==
--- OUTSIDE RECORDS SUMMARY | 2024-10-19 12:30 | XMS_ITS | Continuity of Care Document ---
Author Organization [facility] Address [address] [place] [id number]- Care Team Providers Care Wastewater Treatment Supervisor Name Role Phone Ha MOORE, Ciro Capellan Primary Care Physician Encounter [facility] Date(s): 09/10/24 - 10/10/24 [facility] [address] [place] [id number]- Encounter Type: Triage Allergies, Adverse Reactions, Alerts No Known Allergies [...] virus vaccine, inactivated 06/23/10 Mateus rded SARS-CoV-2(COVID-19)mRNA-LNP vac([id number]) 05/16/23 Recorded [id number] bivalent booster vax 05/04/22 Recorded SARS-CoV-2 (COVID-19) mRNA-1273 vaccine 07/28/21 R ecorded SARS-CoV-2 (COVID-19) mRNA-1273 vaccine 11/22/20 R ecorded SARS-CoV-2 (COVID-19) mRNA-1276 vaccine 10/24/20 R ecorded pneumococcal 13-valent vaccine 06/07/16 Recorded Medications amiodarone 200 mg oral tablet 200 mg, By Mouth, Daily, # 30 tablet, Refills 0, Tot. Refills 0, Maintenance, 07/18/23 12:06:00 PM EST, Route to Pharmacy Electronically, [facility] #[id number], Partial fill upon patient requestif the prescription [...] Refills, Maintenance, 07/18/23 12:06:00 PM EST, [id number], Partial fill upon patient request if the [...] 12:07:00 PM EST, Route to Pharmacy Electronically, [facility] #[id number], Partial fill upon patient request if the [...] 12:07:00 PM EST, Route to Pharmacy Electronically, [facility] #[id number], Partial fill upon patient requestif the prescription [...] 0 Refills, Maintenance, 08/11/24 11:20:00 AM EST, [facility] #[id number], Partial fill upon patient request if the [...] 0 Refills, Maintenance, 01/09/24 3:38:00 PM EDT, [facility] #[id number], Partial fill upon patient request if the [...] Refills, Maintenance, 08/06/23 11:10:00 AM EST, Tablet, [facility] #[id number], Partial fill upon patient request if the [...] Confirmed Active 1Problem added by Discern Expert Social History Social History Type Response Tobacco Other: Quit smoking in 2000. Sex Sex Representation Female (finding) Patient Care team information Care Team Personnel Name: Deborah Boogie RN Position: S RN Member Role: Primary Care Nurse Name: Maribell Akhtar RN Position: S RN Member Role: Primary Care Nurse Name: Neri Malone RN Position: S RN Member Role: Primary Care Nurse Name: Darcie Mooer RN Position: S RN Member Role: Primary Care Nurse Name: Pamela Spears RN Position: [facility] RN Member Role: Primary Care Nurse Name: Khadijah Ashton Position: [facility] RN Letty Member Role: Primary Care Nurse Name: Carie Lanier RN Position: [facility] RN Member Role: Primary Care Nurse Name: Selena Owen RN Position: [facility] RN Member Role: Primary Care Nurse Name: Ajith Cesar RN Position: [facility] RN Member Role: Primary Care Nurse Name: Ciro Bonner MD Position: [facility] Physician - Primary Care Member Role: PCP Address: [address] [place] [address], [address] [place], [place] [address] Telecom: Name: Beth Vann RN Position: [facility] RN Member Role: Primary Care Nurse Name: Mahsa Goldberg RN Position: S RN Member Role: Primary Care Nurse Name: Bonnie Millan RN Position: [facility] RN Member Role: Primary Care Nurse Name: Dominique Augustin RN Position: [facility] RN Member Role: Primary Care Nurse Care Team Related Persons Name: KATY MCGHEE Name: JABARI RODRIGUEZ Insurance Providers Guarantor name: [facility] Health Plan Information #: 1 Payer: EVARISTO Member Number: EVARISTO Policy Number: EVARISTO Group Number: NA
--- OUTSIDE RECORDS SUMMARY | 2024-10-19 12:31 | XMS_ITS | Clinical Summary ---
Author Organization [facility] Address [address] [place] [address] Care Team Providers Care Plant And Equipment Worker Name Role Phone Ciro Bonner MD Primary Care Provider Allergies No known active allergies Medications Medication Sig Dispensed Refills Start Date End Date Status amLODIPine (NORVASC) tablet 5 mg Take 5 mg by mouth daily. 0 Active losartan (COZAAR) 100 MG tablet Take 100 mg by mouth daily. 0 Active Coenzyme Q10 (CO Q-10) 100 MG CAPS Take 300 mg by mouth. 0 Active aspirin EC 81 MG tablet Take 81 mg by mouth daily. 0 Active rosuvastatin (CRESTOR) tablet 10 mg Take 1 tablet (10 mg total) by mouth daily. 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 Essential hypertension 09/01/2019 Social History Tobacco Use Types Packs/Day Years Used Date Smoking Tobacco: Former Smokeless Tobacco: Never Alcohol Use Standard Drinks/Week Comments Yes 0 (1 standard drink = 0.6 oz pur e alcohol) Sex and Gender Information Value Date Recorded Sex Assigned at Not on file Gender Identity Not on file Sexual Orientation Not on file Job Start Date Occupation Industry Not on file Not on file Not on file Last Filed Vital Signs Vital Sign Reading Time Taken Comments Blood Pressure 157/61 11/16/2022 11:14 AM EDT Pulse 84 11/16/2022 11:14 AM EDT Temperature 36.7 ??C (98 ??F) 11/16/2022 11:14 AM EDT Respiratory Rate - - Oxygen Saturation 100% 11/16/2022 11:14 AM EDT Inhaled Oxygen Concentration - - Weight 64 kg (141 lb 3.2 oz) 11/16/2022 11:14 AM EDT Height 157.5 cm (5' 2 ) 11/16/2022 11:14 AM EDT Body Mass Index 25.83 11/16/2022 11:14 AM EDT Plan of Treatment Health Maintenance Due Date Last Done Comments Hepatitis C Screening 1947 Depression Screening 1959 BMI Counseling 1965 Preventative Health Evaluation 1965 DTap / Tdap / Td (1 - Tdap) 1966 Shingrix-Zoster Vaccine (1 of 2) 1966 Fall Risk Assessment 2012 Osteoporosis Screening (DEXA Scan) 2012 Pneumococcal Vaccine (2 of 2 - PPSV23 or PCV20) 08/02/2016 06/07/2016 COVID-19 Vaccine (2 - Moderna risk series) 06/13/2023 05/16/2023 Influenza Vaccine (#1) 2024 3, 05/18/2022, 06/20/2021, Additional history exists RSV Adult > 60+ Yrs or Completed 08/24/2023 Hepatitis B Vaccines Aged Out No long er eligible based on patient's age to complete this topic RSV Ped < 20 months Aged Out No longe r eligible based on patient's age to complete this topic Care Teams Plant And Equipment Worker Relationship Specialty Start Date End Date Ciro Bonner MD [address] [facility] [address] [place] [address] PCP - General Geriatric Medicine 02/24/19
== END 2024-10-19 10:55 | disposition home or self-care (01) ==
LOC: HO.MAMMO 10:54
PROVIDERS: PCP Internal Medicine; Visit Provider Internal Medicine
DX: Z12.31 Encounter for screening mammogram for malignant neoplasm of breast (principal)
CPT/HCPCS: 77063; 77067

== ENCOUNTER → 2024-10-19 11:00 | Outpatient (BNV) | payer MEDICARE, SELFPAY | PROVIDERS: PCP Internal Medicine; Visit Provider Internal Medicine | DX: Z12.31 Encounter for screening mammogram for malignant neoplasm of breast (principal) | CPT/HCPCS: 77063; 77067 ==

== ENCOUNTER 2024-11-30 08:27 | Outpatient (REF) | payer MEDICARE, SELFPAY ==
--- NOTE | ~2024-11-30 | US_ITS ---
EXAMINATION: MM DIAGNOSTIC DIGITAL BREAST TOMOSYNTHESIS, LEFT Limited left breast ultrasound. CLINICAL INFORMATION: Right breast cancer and remote left surgery. Call back from screening for asymmetry in the lateral left breast with architectural distortion on CC view. COMPARISON: Mammography: Priors on PACS. TECHNIQUE: Digital breast tomosynthesis is performed in both the craniocaudal and mediolateral oblique views along with computer-aided detection (CAD). Synthesized 2D images are generated from the tomosynthesis. FINDINGS: The breasts are heterogeneously dense, which may obscure small masses (ACR BI-RADS breast composition Category c). Asymmetry in the lateral left breast posterior depth on CC view with associated distortion persists on additional imaging projections. Suspicious calcifications or other abnormal findings. Targeted color Doppler ultrasound scanning from 1-5 o'clock demonstrates normal fibroglandular breast tissue. US/US breast LT limited mamm only IMPRESSION: Asymmetry with distortion the lateral left breast posterior depth on CC view slightly more prominent compared with priors and without sonographic correlate. Patient has a history of right breast cancer. Recommend stereotactic core needle biopsy at this time for histology confirmation. The findings and recommendations were discussed with the patient the procedure will be scheduled. ASSESSMENT: BI-RADS BI-RADS 4 - Suspicious finding RECOMMENDATION: Biopsy recommended Results were provided to the patient at time of visit by the technologist. This patient's information was entered into a reminder system with a target due date for their next mammogram. Electronically signed by: Yohana Freitas DO 11/30/2024 09:54 AM EDT
--- OUTSIDE RECORDS SUMMARY | 2024-11-30 08:58 | XMS_ITS | Clinical Summary ---
Author Organization [facility] Address [address] [place] [address] Care Team Providers Care Ship Steward Name Role Phone Ciro Bonner MD Primary [...] age to complete this topic Care Teams Ship Steward Relationship Specialty Start Date End Date Ciro Bonner MD [address] [facility] [address] [place] [address] PCP - General Geriatric Medicine 02/24/19
== END 2024-11-30 08:28 | disposition home or self-care (01) ==
LOC: HO.MAMMO 08:27
PROVIDERS: PCP Internal Medicine; Visit Provider Internal Medicine
DX: R92.2 Inconclusive mammogram (principal)
CPT/HCPCS: 76642; 77061; 77065

== ENCOUNTER → 2024-11-30 08:30 | Outpatient (BNV) | payer MEDICARE, SELFPAY | PROVIDERS: PCP Internal Medicine; Visit Provider Internal Medicine | DX: R92.8 Other abnormal and inconclusive findings on diagnostic imaging of breast (principal); Z85.3 Personal history of malignant neoplasm of breast | CPT/HCPCS: 76642; 77065; G0279 ==

== ENCOUNTER 2024-12-16 08:37 | Outpatient (REF) | payer MEDICARE, SELFPAY ==
--- NOTE | ~2024-12-16 | MM_ITS ---
EXAMINATION: STEREOTACTICALLY-GUIDED LEFT BREAST BIOPSY CLINICAL INFORMATION: Architectural distortion lateral left breast on CC view. COMPARISON: Priors on PACS. INFORMED CONSENT: After the details of the procedure, as well as the risks (including, but not limited to, bleeding, hematoma formation, and infection), benefits and alternatives (including doing nothing, short-interval follow up, and surgery) to the procedure were explained to the patient in detail and all of her questions were answered, informed written consent was obtained. TECHNIQUE/FINDINGS: A timeout was performed. The lesion intended for biopsy was identified stereotactically and targeted. The skin of the left breast was then cleansed with sterile solution. Using stereotactic guidance, aseptic technique, and 1% lidocaine with and without epinephrine for local anesthesia, a total of 6 cores were obtained through the targeted area with a 9-gauge vacuum-assisted Eviva core biopsy device from a superior approach. Patient was experiencing pain even with lidocaine numbing medication therefore biopsy was stopped. At the completion of tissue sampling, a single [top hat-shaped metallic clip was deposited at the biopsy site. Adequate sampling was achieved. The postprocedure 2-view direct digital mammogram reveals satisfactory positioning of the biopsy clip. The patient tolerated the procedure well and, after assuring adequate hemostasis, was discharged in good condition after reviewing postbiopsy breast care instructions. Final pathology results are pending. MM/MM stereotactic biopsy LT IMPRESSION: 1. Uncomplicated stereotactically-guided core biopsy of the left breast. The 2-view direct digital postprocedure mammogram reveals top hat clip to be migrated laterally. 2. Final pathology results are pending. A separate report with final recommendations will be issued once these results are made available. Electronically signed by: Yohana Freitas DO 12/16/2024 01:06 PM EDT
--- OUTSIDE RECORDS SUMMARY | 2024-12-16 08:59 | XMS_ITS | Clinical Summary ---
Author Organization [facility] Address [address] [place] [address] Care Team Providers Care Instructor Of Spanish Name Role Phone Ciro Bonner MD Primary Care Provider [phone] Allergies No known active allergies Medications Medication [...] age to complete this topic Care Teams Instructor Of Spanish Relationship Specialty Start Date End Date Ciro Bonner MD [address] [facility] [address] [place] [address] PCP - General Geriatric Medicine 02/24/19
[2024-12-16] MEDS: Sodium Bicarbonate 8.4% 50 MEQ/50 ML VIAL SUBCUT (09:58)
[2024-12-16] MEDS: Lidocaine HCl 1%/Epi 1:100,000 10 ML VIAL 18 ML SUBCUT (10:00)
[2024-12-16] MEDS: Lidocaine HCl 1 % 20 ML VIAL 5 ML SUBCUT (10:02)
== END 2024-12-16 08:38 | disposition home or self-care (01) ==
LOC: HO.MAMMO 08:37
PROVIDERS: PCP Internal Medicine; Visit Provider Internal Medicine
DX: N64.89 Other specified disorders of breast (principal)
CPT/HCPCS: 19081; 88305; A4648; J2003; J2004

== ENCOUNTER → 2024-12-16 09:00 | Outpatient (BNV) | payer MEDICARE, SELFPAY | PROVIDERS: PCP Internal Medicine; Visit Provider Internal Medicine | DX: R92.8 Other abnormal and inconclusive findings on diagnostic imaging of breast (principal) | CPT/HCPCS: 19081; 77065 ==

== ENCOUNTER 2025-01-08 09:21 | Outpatient (AMB) | payer MEDICARE, SELFPAY ==
--- NOTE | 2025-01-08 09:30 | A.OFFVIS_ITS ---
Vital Signs 01/08/25 09:33 Height 5 ft 2 in Weight 133 lb BMI 24.3 Intake Visit Reasons: ov- b/l shoulder pain, last injection 09/17/24 Intake Note: Kristen is a 79 year old female who presents today with complaints of bilateral shoulder pain, last injections on 09/17/24. Patient reports last injections provided her with relief for about 3 weeks. States her right shoulder is the worse. She has numbness that is traveling down her right arm as well as weakness in her right hand for the past week. She would like to discuss cortisone injections. Allergies No Known Allergies [No Known Allergies*] Allergy (Verified 01/08/25 09:32) Medication List - Last Reconciled 01/08/25 by Johann Vogel PA-C acetaminophen (Tylenol) 325 mg PO QID PRN amiodarone 200 mg PO DAILY amlodipine 10 mg PO DAILY biotin 1 mg PO DAILY clopidogrel (Plavix) 75 mg PO DAILY famotidine 20 mg PO DAILY ferrous sulfate 300 mg PO DAILY multivitamin (Multiple Vitamins tablet) 1 tab PO DAILY rosuvastatin 20 mg PO DAILY tramadol 50 mg PO Q4H HPI HPI ov- b/l shoulder pain, last injection 09/17/24: Details: 79-year-old female presents to the office today for a follow-up bilateral shoulder pain. She had previous injections in August for both shoulders which was helpful for approximately 3-4 weeks. She is complaining of some weakness in her right upper extremity and also experiencing some numbness in the hand. [facility] Medical History Breast calcifications Hyperlipidemia Hypertension History of ductal carcinoma in situ (DCIS) of breast Surgical History History of angioplasty (06/29/16) History of lumpectomy of right breast (06/2017) History of lumpectomy of both breasts Hx of release of tendon (1995) History of discectomy (1984) History of hysterectomy (1974) Family History Father No problems noted. Mother History of lung cancer Social History Alcohol intake: current Alcohol intake frequency: holidays/special occasions only Patient Tobacco Use Status: Never used Tobacco Current occupational status: retired Review of Systems Const All systems reviewed & are unremarkable except as noted in HPI and below Physical Exam Vital Signs: BMI result Body Mass Index 24.3 Const General: no acute distress, alert and awake Orientation/consciousness: patient oriented x3 HEENT Head: Yes normocephalic and Yes atraumatic Eyes EOM: EOMs intact bilaterally Resp Effort & Inspection: normal respiratory effort and able to speak in complete sentences Cardio Jugular venous distension: no JVD Skin General skin exam: turgor normal Rashes: no rashes Neuro General: patient oriented x3 Extrem Other: 4/5 EC on right 4-/5 EC on left passive ROM full active : 30/70/120 ( with scapular recuritment) L5 Negative Tinel along the cubital and carpal tunnel. Psych Appearance: grossly normal Affect: normal affect Attitude: cooperative Office Procedures AMB Joint Injection/Aspiration Joint Injection/Aspiration Primary Site: right shoulder Secondary Site: left shoulder Prep: site was prepped using aseptic technique, ethochloride spray was applied and injection warnings given Injected: 40 mg of, 80 mg of, with 8 mL of, 1% plain lidocaine and in the subcromial space Approach Used: posterolateral Procedure: The patient tolerated the procedure well and there was some relief with the local anesthesia Coding 04201 - Glenohumeral/Tronchanteric Bursa/Intraarticular Procedure code (CPT) selection complete Assessment & Plan Assessment & Plan (1) Rotator cuff tear arthropathy of both shoulders: Code(s): M75.101 - Unspecified rotator cuff tear or rupture of right shoulder, not specified as traumatic; M12.811 - Other specific arthropathies, not elsewhere classified, right shoulder; M12.812 - Other specific arthropathies, not elsewhere classified, left shoulder; M75.102 - Unspecified rotator cuff tear or rupture of left shoulder, not specified as traumatic Category: Medical Plan: We discussed options today which includes repeat injection. She did consent to proceed with bilateral shoulder injections which she tolerated well. I did place an order for physical therapy to work on rotator cuff periscapular stabil ization to see if this helps with her weakness. She will see us back as needed if symptoms persist or worsen otherwise follow up as needed. Orders: Orders PT Evaluation and Treatment Today M12.811 - Other specific arthropathies, not elsewhere classified, right shoulder, M12.812 - Other specific arthropathies, not elsewhere classified, left shoulder, M75.101 - Unspecified rotator cuff tear or rupture of right shoulder, not specified as traumatic, M75.102 - Unspecified rotator cuff tear or rupture of left shoulder, not specified as traumatic Coding Level of Care Code Est Pt Level 3 (24173) Complex EM visit Add On G2211 Diagnoses Rotator cuff tear arthropathy of both shoulders M75.101; M12.811; M12.812; M75.102 CPT Codes Coding - Joint 7: 96140 - Glenohumeral/Tronchanteric Bursa/Intraarticular ([id number])
[2025-01-08 09:33] VITALS: BMI 24.3
--- OUTSIDE RECORDS SUMMARY | 2025-01-08 09:38 | XMS_ITS | Clinical Summary ---
Author Organization [facility] Address [address] [place] [address] Care Team Providers Care Hatch Supervisor Name Role Phone Ciro Bonner MD Primary [...] age to complete this topic Care Teams Hatch Supervisor Relationship Specialty Start Date End Date Ciro Bonner MD [address] [facility] [address] [place] [address] PCP - General Geriatric Medicine 02/24/19
== END 2025-01-08 09:52 | disposition home or self-care (01) ==
LOC: HO.HOS 09:27
PROVIDERS: PCP Internal Medicine; Visit Provider Physician Assistant
DX: M75.101 Unspecified rotator cuff tear or rupture of right shoulder, not specified as traumatic (principal); M12.811 Other specific arthropathies, not elsewhere classified, right shoulder; M12.812 Other specific arthropathies, not elsewhere classified, left shoulder; M75.102 Unspecified rotator cuff tear or rupture of left shoulder, not specified as traumatic
CPT/HCPCS: 20610; 99213

== ENCOUNTER → 2025-01-08 09:21 | Outpatient (BNVA) | payer MEDICARE, SELFPAY | PROVIDERS: PCP Internal Medicine; Visit Provider Physician Assistant | DX: M75.101 Unspecified rotator cuff tear or rupture of right shoulder, not specified as traumatic (principal); M75.102 Unspecified rotator cuff tear or rupture of left shoulder, not specified as traumatic; M12.811 Other specific arthropathies, not elsewhere classified, right shoulder; M12.812 Other specific arthropathies, not elsewhere classified, left shoulder | CPT/HCPCS: 20610; 99212; J1010; J2003 ==

== ENCOUNTER 2025-03-09 10:00 | Outpatient (RCR) | payer MEDICARE, SELFPAY ==
--- NOTE | 2025-01-28 15:32 | MHC.PT.EP ---
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 OBJECTIVE FINDINGS: DECR POSTURAL AWARENESS, LIMITED Rt > Lt SH AROM, DECR CERV AROM, (+) TISSUE TENSION IN Rt > Lt UT/ SH, DECR ACTIV OF SCAP MM/ SCAP STAB, AND PAIN IN Rt SH GIRDLE. SHE NOTES EPISODES OF NUMBNESS INTO C8/T1 DERM MEDIAL Rt UE-> HAND-> DUE TO HER POSTURAL DEFICITS. FUNCTIONALLY, THE Pt IS MOD INDEP W ADLs- SHE HAS DIFFIC SLEEPING IN Rt SL, USES Lt UE TO CARRY ITEMS. WE DISCUSSED PT POC AND SHE AGREES TO PROCEED ACCORDINGLY. Frequency and Duration: The patient will be seen 2 x WK x 4 WKS Short Term Goals: *DECR Rt SH PAIN TO 2-3/10 *Pt INDEP ACTIV SCAP MM WELL CERV STAB/ NEUTRAL CERV TO ASSIST IN SELF POSTURAL CORRECTION *IMPROVE ROM/ AAROM Rt SH Product Managent Intern Goals: *Pt INDEP HEP AND SELF SX MGMT TECHN *IMPROVED PERF ADLs * IMPROVED SPADI, AT EVAL 61/130 *IMPROVED FUNCTIONAL STRENGTH Rt SH COMPLEX Treatment Plan: Modalities to reduce pain, spasms and effusion. Manual therapy to restore motion and function. Therapeutic exercise to improve strength and flexibility. Neuromuscular re-education for posture and balance. Therapeutic activities to return to functional activities of daily living. Electronically signed by: JEANNA HORTON,PT Please sign and return to therapist. Thank you for your referral.
--- NOTE | 2025-03-09 11:11 | MHC.PT.DC ---
[facility] [place] Office [place] Office [place] Office [address] Shawna Cain [address] [phone] F: [phone] F: [phone] F: [phone] F: [phone] Physical Therapy Discharge Report Diagnosis: RC TEAR ARTHROPATHY IF BOTH SHOULDERS Date of Surgery: Date of Evaluation: 01/28/25 Date of Discharge: 03/09/25 Treatments to Date: 9 Cancellations to Date: 1 No Shows to Date: Discharge Status: Achieved Goals Improved Function Independent with HEP Discharge Summary: FERMÍN HAS MET HER PT GOALS TO MAX POTENTIAL AT THIS TIME.. SHE WAS ABLE TO ASSIST W SOME YARDWORK W/O EXACERBATING SXS.. SHE IS INDEP W HER HEP AND SHE HAS BEEN EDUC RE DIVIDING IT AND EMPH ON POSTURAL CORRECTION / SCAP MM ACTIV TO REDUCE GH STRESS... HER SPADI AT AL WAS 61/130 AND AT D/C, SHE HAS PROGRESSED -> 40/130. Electronically signed by: JEANNA HORTON,PT Please sign and return to therapist. Thank you for your referral.
== END 2025-03-09 11:12 | disposition home or self-care (01) ==
LOC: HO.PT 10:00
PROVIDERS: PCP Internal Medicine; Visit Provider Physician Assistant
DX: M12.811 Other specific arthropathies, not elsewhere classified, right shoulder (principal); M12.812 Other specific arthropathies, not elsewhere classified, left shoulder; M75.101 Unspecified rotator cuff tear or rupture of right shoulder, not specified as traumatic
CPT/HCPCS: 97110; 97140; 97162

== ENCOUNTER 2025-04-12 10:50 | Outpatient (AMB) | payer MEDICARE, SELFPAY ==
--- NOTE | 2025-04-12 10:51 | A.OFFVIS_ITS ---
Vital Signs 04/12/25 10:55 Height 5 ft 1 in Weight 152 lb BMI 28.7 Intake Visit Reasons: Inj-b/l shoulder pain inj, last injection 01/08/25 Intake Note: Kristen is a 79 year old female who presents today for bilateral shoulder injections, last injections on 01/08/25. At today's visit she states that the last injections did help and that physical therapy showed some improvements and was discharged. Allergies No Known Allergies (No Known Allergies*) Allergy (Verified 04/12/25 10:56) Medication List - Last Reconciled 04/12/25 by Johann Vogel PA-C acetaminophen (Tylenol) 325 mg PO QID PRN amiodarone 200 mg PO DAILY amlodipine 10 mg PO DAILY biotin 1 mg PO DAILY clopidogrel (Plavix) 75 mg PO DAILY famotidine 20 mg PO DAILY ferrous sulfate 300 mg PO DAILY multivitamin (Multiple Vitamins tablet) 1 tab PO DAILY rosuvastatin 20 mg PO DAILY tramadol 50 mg PO Q4H HPI HPI Inj-b/l shoulder pain inj, last injection 01/08/25: Details: [age] year Andrade to the office today for bilateral shoulder pain. She states she was attending physical therapy and had some improvements with her strength. She had an injection on both shoulders on 01/08/2025 with good relief. The injections have since worn off and she is experiencing discomfort with daily activities. [facility] Medical History Breast calcifications Hyperlipidemia Hypertension History of ductal carcinoma in situ (DCIS) of breast Surgical History History of angioplasty (06/29/16) History of lumpectomy of right breast (06/2017) History of lumpectomy of both breasts Hx of release of tendon (1995) History of discectomy (1984) History of hysterectomy (1974) Family History Father No problems noted. Mother History of lung cancer Social History Alcohol intake: current Alcohol intake frequency: holidays/special occasions only Patient Tobacco Use Status: Never used Tobacco Current occupational status: retired Review of Systems Const All systems reviewed & are unremarkable except as noted in HPI and below Physical Exam Vital Signs: BMI result Body Mass Index 28.7 Const General: no acute distress, alert and awake Orientation/consciousness: patient oriented x3 HEENT Head: Yes normocephalic and Yes atraumatic Eyes EOM: EOMs intact bilaterally Resp Effort & Inspection: normal respiratory effort and able to speak in complete sentences Cardio Jugular venous distension: no JVD Skin General skin exam: turgor normal Rashes: no rashes Neuro General: patient oriented x3 Extrem Other: 4/5 EC on right 4-/5 EC on left passive ROM full active : 30/70/120 ( with scapular recuritment) L5 Negative Tinel along the cubital and carpal tunnel. Psych Appearance: grossly normal Affect: normal affect Attitude: cooperative Office Procedures AMB Joint Injection/Aspiration Joint Injection/Aspiration Primary Site: right shoulder Secondary Site: left shoulder Prep: site was prepped using aseptic technique, ethochloride spray was applied and injection warnings given Injected: 40 mg of, DepoMedrol, with 8 mL of, 1% plain lidocaine and in the subcromial space Approach Used: posterolateral Coding 89932 - Glenohumeral/Tronchanteric Bursa/Intraarticular Procedure code (CPT) selection complete Assessment & Plan Assessment & Plan (1) Rotator cuff tear arthropathy of both shoulders: Code(s): M75.101 - Unspecified rotator cuff tear or rupture of right shoulder, not specified as traumatic; M12.811 - Other specific arthropathies, not elsewhere classified, right shoulder; M12.812 - Other specific arthropathies, not elsewhere classified, left shoulder; M75.102 - Unspecified rotator cuff tear or rupture of left shoulder, not specified as traumatic Category: Medical Plan: We discussed options today, which include steroid injection. The patient did consent to move forward with the injection, which was tolerated well.? I recommended rest, ice and elevation and OTC antiinflammatories prn for discomfort. If symptoms persist over the next 6-8 weeks, they will contact our office, otherwise, prn Coding Level of Care Code Est Pt Level 3 (03369) Complex EM visit Add On G2211 Diagnoses Rotator cuff tear arthropathy of both shoulders M75.101; M12.811; M12.812; M75.102 CPT Codes Coding - Joint 7: 72340 - Glenohumeral/Tronchanteric Bursa/Intraarticular ([id number])
[2025-04-12 10:55] VITALS: BMI 28.7
== END 2025-04-12 11:22 | disposition home or self-care (01) ==
LOC: HO.HOS 10:51
PROVIDERS: PCP Internal Medicine; Visit Provider Physician Assistant
DX: M75.101 Unspecified rotator cuff tear or rupture of right shoulder, not specified as traumatic (principal); M12.811 Other specific arthropathies, not elsewhere classified, right shoulder; M12.812 Other specific arthropathies, not elsewhere classified, left shoulder; M75.102 Unspecified rotator cuff tear or rupture of left shoulder, not specified as traumatic
CPT/HCPCS: 20610; 99213

== ENCOUNTER → 2025-04-12 10:50 | Outpatient (BNVA) | payer MEDICARE, SELFPAY | PROVIDERS: PCP Internal Medicine; Visit Provider Physician Assistant | DX: M12.811 Other specific arthropathies, not elsewhere classified, right shoulder (principal); M75.101 Unspecified rotator cuff tear or rupture of right shoulder, not specified as traumatic; M12.812 Other specific arthropathies, not elsewhere classified, left shoulder; M75.102 Unspecified rotator cuff tear or rupture of left shoulder, not specified as traumatic | CPT/HCPCS: 20610; 99212; J1010; J2003 ==

== ENCOUNTER 2025-07-14 08:51 | Outpatient (REF) | payer MEDICARE, SELFPAY ==
--- NOTE | ~2025-07-14 | XR_ITS ---
EXAMINATION: XR SHOULDER, BILATERAL CLINICAL INFORMATION: M25.519 - Pain in unspecified shoulder COMPARISON: September 26, 2023 TECHNIQUE: AP external rotation, Grashey, scapular Y, and axillary views both shoulders. FINDINGS: Joint space narrowing involving the glenohumeral joint and the acromiohumeral joints pronounced on the right shoulder. Marginal osteophyte formation and subchondral cyst formation in the inferior aspect of the glenoid and humeral head, bilaterally. No acute cortical disruption or malalignment. No lytic or blastic lesions. Vascular clips in the right axillary region. Probable vascular calcifications in the upper extremities. Calcified plaque thoracic aorta. Multilevel thoracic spondylosis. XR/XR Shoulder Mickey min 2V IMPRESSION: Degenerative changes in both shoulders. Concerning chronic/old rotator cuff tendon tear, right pronounced than the left shoulder. Electronically signed by: Yonathan Monte MD 07/14/2025 11:44 AM ERICH
== END 2025-07-14 08:52 | disposition home or self-care (01) ==
LOC: HO.HOSX 08:51
PROVIDERS: Visit Provider Physician Assistant
DX: M75.101 Unspecified rotator cuff tear or rupture of right shoulder, not specified as traumatic (principal); M75.102 Unspecified rotator cuff tear or rupture of left shoulder, not specified as traumatic; M12.811 Other specific arthropathies, not elsewhere classified, right shoulder; M12.812 Other specific arthropathies, not elsewhere classified, left shoulder
CPT/HCPCS: 20610; 73030; 99212; J0665; J1100; J2003

== ENCOUNTER 2025-07-14 11:27 | Outpatient (AMB) | payer MEDICARE, SELFPAY ==
--- NOTE | 2025-07-14 11:42 | MHC.OFFVIS ---
Vital Signs 07/14/25 11:48 Height 5 ft 1 in Weight 152 lb BMI 28.7 Intake Visit Reasons: INJ- B/L shoulder inj, last inj 04/12/25 Intake Note: Kristen is a 79 year old female who presents today for a follow up of her rotator cuff tear arthropathy of both shoulders. At last visit on 04/12/25 she was given a steroid injection. At today's visit she states injection helped until recently about 3 weeks ago, with her right shoulder being the worse. She is requesting to repeat injections. Allergies No Known Allergies (No Known Allergies*) Allergy (Verified 07/14/25 11:49) HPI HPI INJ- B/L shoulder inj, last inj 04/12/25: Details: 80-year-old female returns to the office today for bilateral shoulder pain. Right worse than left. She states the injections lasted until approximately 3 weeks ago. She has developed worsening pain with reaching and lifting activities and also at night. [facility] Medical History Breast calcifications Hyperlipidemia Hypertension History of ductal carcinoma in situ (DCIS) of breast Surgical History (Updated 07/14/25 @ 11:44 by WHIT Son) Hx of foot surgery History of angioplasty (06/29/16) History of lumpectomy of right breast (06/2017) History of lumpectomy of both breasts Hx of release of tendon (1995) History of discectomy (1984) History of hysterectomy (1974) Family History Father No problems noted. Mother History of lung cancer Social History (Updated 07/14/25 @ 11:44 by WHIT Son) Alcohol intake: current Alcohol intake frequency: holidays/special occasions only Patient Tobacco Use Status: Never used Tobacco Current occupational status: retired Current occupation: right hand dominant Review of Systems Const All systems reviewed & are unremarkable except as noted in HPI and below Physical Exam Vital Signs: BMI result Body Mass Index 28.7 Const General: no acute distress, alert and awake Orientation/consciousness: patient oriented x3 HEENT Head: Yes normocephalic and Yes atraumatic Eyes EOM: EOMs intact bilaterally Resp Effort & Inspection: normal respiratory effort and able to speak in complete sentences Cardio Jugular venous distension: no JVD Skin General skin exam: turgor normal Rashes: no rashes Neuro General: patient oriented x3 Extrem Other: 4/5 EC on right 4-/5 EC on left passive ROM full active : 30/70/120 ( with scapular recuritment) L5 Negative Tinel along the cubital and carpal tunnel. Psych Appearance: grossly normal Affect: normal affect Attitude: cooperative Office Procedures AMB Joint Injection/Aspiration Joint Injection/Aspiration Primary Site: Right Shoulder Secondary Site: Left Shoulder Prep: site was prepped using aseptic technique, ethochloride spray was applied and injection warnings given Injected: 40 mg of, Decadron, 1% plain Lidocaine, 0.25% Bupivacaine and in the subcromial space Approach Used: posterolateral Procedure: The patient tolerated the procedure well and there was some relief with the local anesthesia Coding - Glenohumeral/Tronchanteric Bursa/Intraarticular Procedure code (CPT) selection complete Results Reviewed Results Reviewed: Obtained in the office today and reviewed by me show osteoarthritis with humeral head migration Assessment & Plan Assessment & Plan (1) Rotator cuff tear arthropathy of both shoulders: Code(s): M75.101 - Unspecified rotator cuff tear or rupture of right shoulder, not specified as traumatic; M12.811 - Other specific arthropathies, not elsewhere classified, right shoulder; M12.812 - Other specific arthropathies, not elsewhere classified, left shoulder; M75.102 - Unspecified rotator cuff tear or rupture of left shoulder, not specified as traumatic Category: Medical Plan: We discussed options today, which include steroid injection. The patient did consent to move forward with the injection, which was tolerated well.? I recommended rest, ice and elevation and OTC antiinflammatories prn for discomfort. If symptoms persist over the next 6-8 weeks, they will contact our office, otherwise, prn Orders: Orders XR Shoulder Mickey min 2V Today M25.519 - Pain in unspecified shoulder Coding Level of Care Code Est Pt Level 3 (04811) Complex EM visit Add On G2211 Diagnoses Rotator cuff tear arthropathy of both shoulders M75.101; M12.811; M12.812; M75.102 CPT Codes Coding - Joint 7: 32525 - Glenohumeral/Tronchanteric Bursa/Intraarticular ([id number])
[2025-07-14 11:48] VITALS: BMI 28.7
--- OUTSIDE RECORDS SUMMARY | 2025-07-14 22:36 | XMS_ITS | Clinical Summary ---
Author Organization [facility] Address [address] [place] [address] Care Team Providers Care Private Detective Name Role Phone Ciro Bonner MD Primary [...] 86 11/16/2022 11:14 AM EDT Temperature 36.7 C (98 F) 11/16/2022 11:14 AM EDT Respiratory Rate - [...] risk series) 06/13/2023 05/16/2023 Influenza Vaccine (#1) 2025 , 05/18/2022, 06/20/2021, Additional history exists RSV Adult > 60+ Yrs or Completed 08/24/2023 Hepatitis B Vaccines Aged Out No long er eligible based on patient's age to complete this topic RSV Ped < 20 months Aged Out No longe r eligible based on patient's age to complete this topic Care Teams Private Detective Relationship Specialty Start Date End Date Ciro Bonner MD [address] [place] [address] PCP - General Geriatric Medicine 02/24/19
== END 2025-07-14 12:05 | disposition home or self-care (01) ==
LOC: HO.HOS 11:27
PROVIDERS: PCP Internal Medicine; Visit Provider Physician Assistant
DX: M75.101 Unspecified rotator cuff tear or rupture of right shoulder, not specified as traumatic (principal); M12.811 Other specific arthropathies, not elsewhere classified, right shoulder; M12.812 Other specific arthropathies, not elsewhere classified, left shoulder; M75.102 Unspecified rotator cuff tear or rupture of left shoulder, not specified as traumatic
CPT/HCPCS: 20610; 99213

== ENCOUNTER → 2025-07-14 11:29 | Outpatient (BNV) | payer MEDICARE, SELFPAY | PROVIDERS: Visit Provider Radiology Diagnostic Radiology | DX: M19.011 Primary osteoarthritis, right shoulder (principal); M19.012 Primary osteoarthritis, left shoulder | CPT/HCPCS: 73030 ==